=== PATIENT | female | born 1960 | race Caucasian/White ===

== ENCOUNTER 2020-11-13 15:02 | Inpatient (IN) | payer OTHER ==
[~2020-11-13] VITALS: Ht 165.1 cm; Wt 79.7 kg
[2020-11-13] MEDS ORDERED: OMEP20ER PO (15:33)
[2020-11-13 15:34] LABS: BASOPHILS ABSOLUTE AUTO 0.05 K/mm3 (0.00-0.23); BASOPHILS PERCENT AUTO 1 % (0-2); EOSINOPHILS ABSOLUTE AUTO 0.18 K/mm3 (0.00-0.68); EOSINOPHILS PERCENT AUTO 2 % (0-6); Hemoglobin 15.1 g/dL (11.5-16.0); IMMATURE GRAN ABSOLUTE AUTO 0.03 K/mm3 (0.00-0.10); IMMATURE GRAN PERCENT AUTO 0 % (0-1); LYMPHOCYTES ABSOLUTE AUTO 3.07 K/mm3 (0.84-5.20); LYMPHOCYTES PERCENT AUTO 36 % (21-46); MONOCYTES ABSOLUTE AUTO 0.72 K/mm3 (0.16-1.47); MONOCYTES PERCENT AUTO 9 % (4-13); Mean Corpuscular HGB Conc 32.8 g/dL (31.5-36.5); Mean Corpuscular Volume 91 fL (80-100); Mean Platelet Volume 8.6 fL (9.1-12.4); NEUTROPHILS ABSOLUTE AUTO 4.42 K/mm3 (1.96-9.15); NEUTROPHILS PERCENT AUTO 52 % (41-73); Platelet Count 303 K/mm3 (150-400); RDW Coefficient Variation 12.8 % (11.7-14.2); RDW Standard Deviation 42.8 fL (35.1-46.3); Red Blood Cell Count 5.04 M/mm3 (3.80-5.20); White Blood Cell Count 8.47 K/mm3 (4.00-11.30)
[2020-11-13 15:35] LABS: Calcium, Ionized (POC) 1.18 mmol/L (1.10-1.46); Chloride (POC) 109 mmol/L (98-108); Creatinine (POC) 0.8 mg/dL (0.6-1.0); Glucose (ISTAT POC) 133 mg/dL (70-99); Hemoglobin (POC) 15.3 g/dL (12.0-16.0); Potassium (POC) 3.9 mmol/L (3.5-5.5); Sodium (POC) 140 mmol/L (135-148); Total CO2 (POC) 18 mmol/L (21-32)
[2020-11-13 15:58] LABS: Alanine Aminotransfer (ALT/SGP 28 U/L (12-78); Alk Phos 92 U/L (50-136); Anion Gap 9 mmol/L (6-16); Aspartate Aminotrans (AST/SGOT 19 U/L (12-37); Bilirubin, Total 0.4 mg/dL (0.1-1.0); Blood Urea Nitrogen 17 mg/dL (8-24); Bun/Creatinine Ratio 20.6 (12.0-20.0); CO2, Blood 19 mmol/L (21-32); Calcium, Blood 9.1 mg/dL (8.5-10.1); Chloride, Blood 110 mmol/L (98-108); Creatinine, Blood 0.82 mg/dL (0.40-1.00); Globulin, Blood 4.1 g/dL (2.2-4.0); Glomerular Filtration Rate >60 (60-); Glucose, Blood 127 mg/dL (70-99); Potassium, Blood 3.7 mmol/L (3.5-5.5); Sodium, Blood 138 mmol/L (136-145); Total Protein, Blood 8.1 g/dL (6.4-8.2)
[2020-11-13 18:30] LABS: BASOPHILS ABSOLUTE AUTO 0.07 K/mm3 (0.00-0.23); BASOPHILS PERCENT AUTO 1 % (0-2); EOSINOPHILS ABSOLUTE AUTO 0.06 K/mm3 (0.00-0.68); EOSINOPHILS PERCENT AUTO 1 % (0-6); Hematocrit 39.3 % (33.0-51.0); Hemoglobin 13.1 g/dL (11.5-16.0); IMMATURE GRAN ABSOLUTE AUTO 0.07 K/mm3 (0.00-0.10); IMMATURE GRAN PERCENT AUTO 1 % (0-1); LYMPHOCYTES ABSOLUTE AUTO 1.13 K/mm3 (0.84-5.20); LYMPHOCYTES PERCENT AUTO 11 % (21-46); MONOCYTES ABSOLUTE AUTO 0.38 K/mm3 (0.16-1.47); MONOCYTES PERCENT AUTO 4 % (4-13); Mean Corpuscular HGB 30.2 pg (26.0-34.0); Mean Corpuscular HGB Conc 33.3 g/dL (31.5-36.5); Mean Corpuscular Volume 91 fL (80-100); Mean Platelet Volume 8.9 fL (9.1-12.4); NEUTROPHILS ABSOLUTE AUTO 8.38 K/mm3 (1.96-9.15); NEUTROPHILS PERCENT AUTO 83 % (41-73); Platelet Count 272 K/mm3 (150-400); RDW Coefficient Variation 12.7 % (11.7-14.2); RDW Standard Deviation 42.4 fL (35.1-46.3); Red Blood Cell Count 4.34 M/mm3 (3.80-5.20); White Blood Cell Count 10.09 K/mm3 (4.00-11.30)
--- NOTE | 2020-11-13 19:12 | NUR ---
PT ARRIVAL... PT ARRIVED ON UNIT AT 1715, PT HAS A RIGHT RADIAL SITE WITH A TR BAND THAT HAS 11MLS, NO SWELLING OR HEMATOMA NOTED, SMALL AMOUNT OF OOZING IS NOTED TO THE SITE. PT IS ON A NITRO GTT RUNNING AT 20MCG, AGGRASTAT RUNNING AT .15MCG/KG/MIN PER ORDERS. PT DENIES ANY CHEST PAIN/PRESSURE N/V OR SOB AT THIS TIME. PT'S VS STABLE WITH SBPs<135. PT HAD 2 STENTS PLACED TO THE LAD. PT IS A&Ox4. L/S CLEAR T/O ON RA. BT PRESENT AND HYPOACTIVE, ABD IS SOFT AND NONTENDER TO PALP. PT'S S.O. AT THE BEDSIDE AND UPDATED ON THE PT'S CONDITION AND PLAN OF CARE. PT IS CONT OF URINE AND ABLE TO USE THE BEDPAN TO VOID. WHEN PT WAS SAT UP TO EAT HER DINNER SHE STATED SHE FELT "A LITTLE MORE SOB" THAN WHEN SHE IS LYING DOWN. CALL LIGHT IN REACH WILL CONTINUE TO MONITOR UNTIL REPORT IS GIVEN TO ONCOMING RN.
[2020-11-13] MEDS ORDERED: CYCL10 PO (20:39)
--- NOTE | 2020-11-13 21:40 | NUR ---
START OF SHIFT PT AXO. IN SR. ON RA. BP 110'S. TR BAND STILL FULLY INFLATED W/O COMPLICATION. AGGRASTAT INFUSING ORDERED. NITRO GTT INFUSING AT 20. DR MCKNIGHT TO ROOM. PROVIDES PT EDUCATION. EKG PERFORMED, DR RAMOS. 1939 - PT C/O OF SEVERE HEADACHE/NAUSEA/HOT FLASH. BP DROPPED TO 90'S SBP. PT PRESENTS PALE, DIAPHORETIC. NITRO GTT TITRATED TO 15. PT STATES SOME RELIEF WITH THIS IN [address] MCKNIGHT STATES TO JUST TURN OFF NITRO GTT AT THIS TIME. 1999 TR BAND DEFLATION PROCESS STARTED. PT DENYING CP/PRESSURE AND STATES FEELING "MUCH BETTER" NOW HAT NITRO GTT HAS BEEN TURNED OFF.
--- NOTE | 2020-11-14 01:02 | NUR ---
MID SHIFT TR BAND FULLY RECOVERED TO R WRIST. AGGRASTAT INFUSING. NS FINISHED. PT DENYING CP/PRESSURE. VSS.
[2020-11-14 02:00] LABS: BASOPHILS ABSOLUTE AUTO 0.03 K/mm3 (0.00-0.23); BASOPHILS PERCENT AUTO 0 % (0-2); EOSINOPHILS ABSOLUTE AUTO 0.03 K/mm3 (0.00-0.68); EOSINOPHILS PERCENT AUTO 0 % (0-6); Hematocrit 38.2 % (33.0-51.0); Hemoglobin 12.9 g/dL (11.5-16.0); IMMATURE GRAN ABSOLUTE AUTO 0.04 K/mm3 (0.00-0.10); IMMATURE GRAN PERCENT AUTO 1 % (0-1); LYMPHOCYTES ABSOLUTE AUTO 1.23 K/mm3 (0.84-5.20); LYMPHOCYTES PERCENT AUTO 14 % (21-46); MONOCYTES ABSOLUTE AUTO 0.73 K/mm3 (0.16-1.47); MONOCYTES PERCENT AUTO 8 % (4-13); Mean Corpuscular HGB 30.4 pg (26.0-34.0); Mean Corpuscular HGB Conc 33.8 g/dL (31.5-36.5); Mean Corpuscular Volume 90 fL (80-100); Mean Platelet Volume 8.6 fL (9.1-12.4); NEUTROPHILS ABSOLUTE AUTO 6.74 K/mm3 (1.96-9.15); NEUTROPHILS PERCENT AUTO 77 % (41-73); Platelet Count 269 K/mm3 (150-400); RDW Coefficient Variation 12.9 % (11.7-14.2); RDW Standard Deviation 42.6 fL (35.1-46.3); Red Blood Cell Count 4.25 M/mm3 (3.80-5.20)
[2020-11-14 02:26] LABS: Anion Gap 8 mmol/L (6-16); Blood Urea Nitrogen 14 mg/dL (8-24); Bun/Creatinine Ratio 21.2 (12.0-20.0); CHOL/HDL RATIO 3.8; CO2, Blood 22 mmol/L (21-32); Calcium, Blood 8.4 mg/dL (8.5-10.1); Chloride, Blood 111 mmol/L (98-108); Cholesterol 205 mg/dL (50-200); Creatinine, Blood 0.66 mg/dL (0.40-1.00); Glomerular Filtration Rate >60 (60-); Glucose, Blood 118 mg/dL (70-99); HDL Cholesterol 54 mg/dL (>39); LDL/HDL RATIO 2.4; Low Density Lipoprotein Chol 128 mg/dL (0-110); Sodium, Blood 141 mmol/L (136-145); Thyroid Stimulating Hormone 0.433 uIU/mL (0.360-4.800); Triglycerides 115 mg/dL (30-160); Very Low Density Lipoprot Chol 23 mg/dL (6-32)
--- NOTE | 2020-11-14 05:23 | NUR ---
END OF SHIFT NO ACUTE CHANGES. VSS. REMAINS OFF OF NITRO GTT. AGGRASTAT INFUSING UNTIL 1050 TODAY. TR BAND FULLY RECOVERED, NO HEMATOMA NOTED. PT HAS DENIED CP/PRESSURE T/O SHIFT. PT UP TO BATHROOM MULTIPLE TIMES THIS SHIFT W/OUT INCIDENT. ECHO SCHEDULED FOR THIS AM WELL REPEAT EKG. AWAITING RESULTS. PT USING CALLL IGHT APPROPRIATELY.
--- NOTE | 2020-11-14 07:49 | NUR ---
AM NOTE... ASSUMED CARE OF PT AT 0700, PT IS A&Ox4 AND SBA IN THE ROOM D/T THE LINES AND CORDS. PT WAS ADMITTED FOR STEMI WITH STENT PLACEMENT. PT IS ON AN AGGRASTAT GTT RUNNING AT 0.15MCG/KG/MIN PER ORDERS AND IS TO RUN FOR 18 HOURS WHICH WILL END AT 1050 THIS AM. PT HAS A RIGHT RADIAL SITE WITH A TEGADERM DRESSING IN PLACE, NO SWELLING/BLEEDING OR HEMATOMA NOTED. PT DENIES ANY PAIN TO THE SITE, PT ALSO DENIES ANY CHEST PAIN/PRESSURE OR SOB. PT IS ON RA WITH O2 SATS >95%. L/S CLEAR T/O. PT IS IN NSR IN THE 80'S-90'S. BP STABLE WITH SPB 130'S-150'S. NO EDEMA NOTED ON ASSESSMENT. PT'S BT PRESENT AND HYPOACTIVE, ABD IS SOFT AND NONTENDER TO PALP. PT WAS A SBA TO THE TOILET TO VOID THIS AM D/T THE LINES AND CORDS. PT IS UP IN THE RECLINER CHAIR FOR BREAKFAST. CALL LIGHT IN REACH WILL CONTINUE TO MONITOR.
--- NOTE | 2020-11-14 11:53 | NUR ---
Echocardiogram using 0.50ml of Definity contrast performed.
--- NOTE | 2020-11-14 17:30 | NUR ---
SHIFT SUMMARY... NO ACUTE NEGATIVE CHANGES NOTED THIS SHIFT. PT'S VS HAVE BEEN STABLE T/O SHIFT. PT DENIES ANY CHEST PAIN/PRESSURE N/V OR SOB. PT HAS BEEN ON RA WITH O2 SATS >95%. PT HAS BEEN IND IN THE ROOM FOR MOST OF THIS SHIFT. PT'S RIGHT RADIAL SITE IS C/D/I WITH NO SWELLING/BLEEDING OR HEMATOMA. PT HAS BEEN IND TO THE TOILET TO VOID. PT'S S.O. IN THE ROOM FOR VISITING HOURS. PT IS TO TRANSFER TO PCU 4, AWAITING HYDRATE CONTROL TENDER TO CALL FOR REPORT. ALL OF PT'S BELONGING PACKED AND READY TO TRANSFER. CALL LIGHT IN REACH WILL CONTINUE TO MONITOR UNTIL PT IS TRANSFERRED.
--- NOTE | 2020-11-14 18:50 | NUR ---
TRANSFER FROM ICU: PT TRANSFER TO PCU 4. ALERT AND ORIENTED X4. ON ROOM AIR. TELE SHOWING SINUS WITH INVERTED P WAVES AND HR AT 88. DENIES CHEST PAIN/PRESSURE. VITAL SIGNS STABLE. RIGHT RADIAL SIGHT WNL. NO SIGNS OF HEMATOMA, SOFT AND NONTENDER. TEGADERM IN PLACE. NO ARM BOARD NEEDED PER DR. MCKNIGHT. BOWEL TONES HEARD. PT DENIES NEEDS AT THIS TIME. ORIENTED TO UNIT AND ROOM. CALL LIGHT IN REACH. AT BEDSIDE FOR TRANSFER. WILL CONTINUE TO MONITOR AND REPORT OFF. IV SALINE LOCKED AND FLUSHING WELL.
--- NOTE | 2020-11-15 05:54 | NUR ---
SHIFT SUMMARY PATIENT IS ALERT AND ORIENTED X4. INDEPENDENT IN THE ROOM. RIGHT RADIAL SITE UNCHANGED AND WNL. PATIENT DENIED CP/PRESSURE THROUGHOUT THE SHIFT. 02 SATS >95% ON RA. VSS, NO ACUTE CHANGES. CALL LIGHT IN REACH.
[2020-11-15 13:14] LABS: BASOPHILS ABSOLUTE AUTO 0.05 K/mm3 (0.00-0.23); BASOPHILS PERCENT AUTO 1 % (0-2); EOSINOPHILS ABSOLUTE AUTO 0.13 K/mm3 (0.00-0.68); EOSINOPHILS PERCENT AUTO 2 % (0-6); Hematocrit 42.9 % (33.0-51.0); Hemoglobin 14.1 g/dL (11.5-16.0); IMMATURE GRAN ABSOLUTE AUTO 0.05 K/mm3 (0.00-0.10); IMMATURE GRAN PERCENT AUTO 1 % (0-1); LYMPHOCYTES ABSOLUTE AUTO 1.49 K/mm3 (0.84-5.20); LYMPHOCYTES PERCENT AUTO 20 % (21-46); MONOCYTES ABSOLUTE AUTO 0.63 K/mm3 (0.16-1.47); MONOCYTES PERCENT AUTO 9 % (4-13); Mean Corpuscular HGB 30.1 pg (26.0-34.0); Mean Corpuscular HGB Conc 32.9 g/dL (31.5-36.5); Mean Corpuscular Volume 92 fL (80-100); Mean Platelet Volume 8.6 fL (9.1-12.4); NEUTROPHILS ABSOLUTE AUTO 4.97 K/mm3 (1.96-9.15); NEUTROPHILS PERCENT AUTO 68 % (41-73); Platelet Count 274 K/mm3 (150-400); RDW Coefficient Variation 12.9 % (11.7-14.2); RDW Standard Deviation 43.4 fL (35.1-46.3); Red Blood Cell Count 4.68 M/mm3 (3.80-5.20); White Blood Cell Count 7.32 K/mm3 (4.00-11.30)
[2020-11-15 13:32] LABS: Anion Gap 5 mmol/L (6-16); Blood Urea Nitrogen 15 mg/dL (8-24); Bun/Creatinine Ratio 19.5 (12.0-20.0); CO2, Blood 25 mmol/L (21-32); Calcium, Blood 8.3 mg/dL (8.5-10.1); Chloride, Blood 112 mmol/L (98-108); Creatinine, Blood 0.77 mg/dL (0.40-1.00); Glomerular Filtration Rate >60 (60-); Glucose, Blood 113 mg/dL (70-99); Phosphorus, Blood 3.3 mg/dL (2.5-4.9); Potassium, Blood 4.2 mmol/L (3.5-5.5); Sodium, Blood 142 mmol/L (136-145)
[2020-11-15] MEDS ORDERED: ASPI81CH PO (14:54)
[2020-11-15] MEDS ORDERED: ATOR80 PO (14:54)
[2020-11-15] MEDS ORDERED: METO50ER PO (14:55)
[2020-11-15] MEDS ORDERED: Prinivil10 MG PO (14:55)
[2020-11-15] MEDS ORDERED: NITR.4SL SL (14:57)
[2020-11-15] MEDS ORDERED: TICA90TA PO (14:58)
--- NOTE | 2020-11-15 17:26 | NUR ---
DISCHARGE NOTE PT A&Ox4; CALM AND COOPERATIVE WITH CARE. PT RESTING IN BED, UP IND IN ROOM. PT DENIES PAIN, CHEST PAIN/PRESSURE, SOB, NAUSEA AND DIZZINESS/LIGHTHEADEDNESS. RIGHT RADIAL SITE C/D/I, NO BRUISING, BLEEDING OR HEMATOMA. PER TELE INVERTED T WAVE INCREASED IN WAVE FORM; NOTIFIED DR MIRELES, NEW ORDERS FOR EKG. QTC>600 PER EKG, NOTIIFED DR MIRELES, NEW ORDER FOR STAT LABS. DR MIRELES TO ROOM, CONTINUE WITH PLANS FOR DISCHARGE. VSS. NO OTHER ACUTE CHAGNES NOTED DURING SHIFT. EDUCATED PT ON DISCHARGE INSTRUCTIONS, FOLLOW UP APPOINTMENT, MEDICATIONS AND RADIAL SITE CARE. PT LEFT VIA WHEELCHAIR AT APPROX 1350.
== END 2020-11-15 15:51 | disposition home or self-care (01) | DRG 246 ==
LOC: ER 15:02 → ICUE 15:29 → ICUW 15:29 → ICUE 17:16 → PCU 11-14 18:14
PROVIDERS: Emergency Medicine; Internal Medicine Cardiovascular Disease; ADMIT Internal Medicine Cardiovascular Disease
PROC: 027035Z Dilation of Coronary Artery, One Artery with Two Drug-eluting Intraluminal Devices, Percutaneous Approach (ICD-10-PCS; principal; 2020-11-13)
PROC: 4A023N7 Measurement of Cardiac Sampling and Pressure, Left Heart, Percutaneous Approach (ICD-10-PCS; 2020-11-13)
PROC: B2111ZZ Fluoroscopy of Multiple Coronary Arteries using Low Osmolar Contrast (ICD-10-PCS; 2020-11-13)
DX: I21.09 ST elevation (STEMI) myocardial infarction involving other coronary artery of anterior wall (principal); I25.42 Coronary artery dissection; I10 Essential (primary) hypertension; I25.10 Atherosclerotic heart disease of native coronary artery without angina pectoris; E78.5 Hyperlipidemia, unspecified; Z90.710 Acquired absence of both cervix and uterus; Z90.49 Acquired absence of other specified parts of digestive tract; Z98.890 Other specified postprocedural states
CPT/HCPCS: 36415; 80047; 80048; 80053; 80061; 83036; 83735; 83880; 84100; 84443; 84484; 85014; 85025; 85347; 92978; 93005; 93010; 93458; 94762; 96374; 96375; 99152; 99153; 99285-25; A9270; C1725; C1753; C1769; C1874; C1887; C1894; C8929; C9606; J1644; J2250; J3010; J3246; J7030; J7050; Q9957; Q9967